=== PATIENT | male | born 1930 | race African-American/Black ===

== ENCOUNTER → 2017-06-20 | Outpatient (CLI) | payer MEDICARE, BC | END | disposition home or self-care (01) | LOC: PVL 09:30 | PROVIDERS: ATTEND Specialist | DX: I50.9 Heart failure, unspecified (principal); G45.8 Other transient cerebral ischemic attacks and related syndromes | CPT/HCPCS: 93880 ==

== ENCOUNTER → 2017-06-21 | Outpatient (CLI) | payer MEDICARE, BC | END | disposition home or self-care (01) | LOC: CARD 10:20 | PROVIDERS: ATTEND Specialist | DX: I50.30 Unspecified diastolic (congestive) heart failure (principal); G45.8 Other transient cerebral ischemic attacks and related syndromes; I51.7 Cardiomegaly | CPT/HCPCS: 93306 ==